=== PATIENT | male | born 1985 | race Caucasian/White ===

== ENCOUNTER 2021-07-18 10:00 | Outpatient (RCR) | payer OTHER, SELFPAY ==
[2021-07-06 13:06] VITALS: BMI 41.0
--- NOTE | 2021-07-06 15:11 | PC.NURSE ---
Case opened in treatment team.
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
--- NOTE | 2021-07-11 14:28 | PC.NURSE ---
I called and left a message for pt. I asked him to please call re: schedule and how the treatment is going.
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
--- NOTE | 2021-07-17 17:36 | HO.PHPPROGNO ---
Subjective Subjective Date of Service: 07/17/21 Reason For Visit: Personality D/o, Anxiety, Depression, Bipolar D/o Subjective Notes: High Warning Guardianship: No Medical Problems Affecting Mental Status: No Interim History: Hollis reports that he is doing good today. He reports that overall he feels that his mood has improved ?a little bit ?since he began PHP, and that he ?feels more stable ?. He denies any type of thought of harm to self or others, no safety concerns. Patient has been taking medications as prescribed, including the escitalopram 10 mg, and the lamotrigine which was increased to 100 mg daily on July 06. He denies any type of side effects. He states that he does feel stable regarding his last day tomorrow. He is requesting a refill for lamotrigine. Medication Compliance: Yes Side effects from medications: No Attending Groups: Yes Review of Systems Acute medical concerns: No Medical Review of Systems: unchanged Review of Systems Review of Systems Yes all other systems are reviewed and are negative Mental Status Exam Mental Status Exam Narrative: Well-developed, obese male, in no apparent distress. Alert and oriented x4, fully attentive during encounter. Patient Appearance: Well Grooomed and Appropriate Patient Orientation: Person, Place, Time and Situation Level of Consciousness: Appropriate and Alert Patient Behavior: Appropriate Mood Description: Appropriate, Depressed and Anxious Affect Description: Appropriate, Depressed and Anxious Patient Cognition Impaired: No Ability to Follow Directions: Excellent Speech Pattern: Clear and Appropriate Memory Description: Intact Hallucinations: None Delusions: Not Present Thought Process: Intact, Goal Oriented and Linear Thought Content: positive for Intact, positive for Goal Oriented and positive for Linear Depressive Symptoms: Increased Anxiety, Difficulty Sleeping, Feelings of Worthlessness and Hopelessness Judgement: Fair Diagnostics Vital Signs (24Hr): Body Mass Index 41.0 Assessment & Plan Assessment & Plan (1) Generalized anxiety disorder: Status: Acute Code(s): F41.1 - Generalized anxiety disorder Assessment and Plan: Patient continues with escitalopram 10 mg daily, reports he is tolerating it well. Reports that it is helping ?somewhat?. Patient stated he plans to keep taking this for now, and will discuss any further dose increases with his outpatient provider going forward. (2) Major depressive disorder, recurrent severe without psychotic features: Status: Acute Code(s): F33.2 - Major depressive disorder, recurrent severe without psychotic features Assessment and Plan: Patient reports the Lamictal, is helping manage his symptoms of bipolar depression. States that he feels more stable and that his mood has stabilized somewhat. Patient states that going forward he will discuss any further dose increase recommendations with his outpatient provider. No safety concerns at this time. He is requesting a refill for this medication. Assessment and Plan: 1. REfill sent for lamictal 100mg daily. 2. no other refills needed at this time. 3. Patient plans to follow-up with his outpatient provider going forward. 4. Will follow-up if needed while he is still enrolled in [facility]. Reason for contiued partial hosp. stay Substantial Risk for: stable for discharge Certification I certify that partial hospital treatment is medically necessary due to the symptoms and problems resulting from the patient's mental illness and the failure to treat the patient at the partial hospital level of care would likely result in the patient requiring inpatient psychiatric care which could not be prevented at a less intensive level of care. Greater than 50% of the session was spent on counseling and/or coordination of care Discharge Plan Discharge Attending provider: Lucian Viveros Medications: New escitalopram oxalate [Lexapro] 10 mg tablet 10 mg PO DAILY Qty: 30 RF: 1 lamotrigine 100 mg tablet 100 mg PO DAILY 30 Days Qty: 30 RF: 0 Discontinued lamotrigine 25 mg Tablet 50 mg PO BEDTIME RF: 0 No Action amlodipine 5 mg Tablet 5 mg PO BEDTIME RF: 0 lorazepam 1 mg Tablet 1 mg PO BEDTIME PRN (Reason: Sleep) RF: 0 ondansetron 4 mg Tablet,Disintegrating 4 - 8 mg PO Q8H PRN (Reason: Nausea) RF: 0 nortriptyline 50 mg Capsule 50 mg PO BEDTIME RF: 0 bupropion HCl [Wellbutrin SR] 200 mg Tablet Sustained-Release 12 Hr 200 mg PO BID RF: 0 aripiprazole 20 mg Tablet 20 mg PO BEDTIME RF: 0 gabapentin 300 mg Tablet 300 - 600 mg PO DAILY PRN (Reason: Pain) RF: 0 Telehealth Telehealth Location of provider rendering services: practice address Location of patient: address on file Patient Identification confirmed using: Name, : Yes Telehealth method: video Patient verbally consented to treatment: Yes Patient verbally consented to billing insurance company: Yes Patient informed of any privacy concerns related to visit: Yes Time spent with patient (mins): 15
--- NOTE | 2021-07-18 11:00 | PC.NURSE ---
Patient is scheduled for discharge today. Reviewed patient medications with patient. Patient reports that he has issues with sleeping. Stated he has been taking Wellbutrin SR 200 mg BID taking the second dose at HS. Reviewed with patient that taking second dose of Wellbutrin at HS could cause sleep issues and educated patient about taking the second dose 8 hours apart from the first dose taking first dose of Wellbutrin SR at 0800 and second dose at 1600. Also reviewed with Dr Norwood who advised to take medication as the above suggested times(0800,1600) as patient has been having issues with sleep. Denied any safety issues.
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
--- NOTE | 2021-07-18 15:40 | PC.NURSE ---
I called and left a message for pt's therapist at [facility], Lincoln Aiken ([phone]). I informed him of pt's discharge from [facility] today.
--- NOTE | 2021-07-21 15:39 | PC.NURSE ---
I called and left a message for pt's therapist at [facility], Lincoln Lanier
== END 2021-07-19 07:16 | disposition home or self-care (01) ==
LOC: HO.PHPA 10:00
PROVIDERS: Visit Provider Psychiatry & Neurology Psychiatry
DX: F33.2 Major depressive disorder, recurrent severe without psychotic features (principal); F41.1 Generalized anxiety disorder; Z79.899 Other long term (current) drug therapy
CPT/HCPCS: 90853

== ENCOUNTER 2022-02-01 11:15 | Outpatient (REF) | payer MEDICARE, MEDICAID, SELFPAY ==
[2022-02-01 13:04] LABS: Vitamin B12 472 pg/mL (200-900)
[2022-02-02 08:36] LABS: Lyme Abs Screen <0.90 index
== END 2022-02-01 11:16 | disposition home or self-care (01) ==
LOC: HO.LAB 11:15
PROVIDERS: Visit Provider Psychiatry & Neurology Neurology
DX: G31.84 Mild cognitive impairment of uncertain or unknown etiology (principal)
CPT/HCPCS: 36415; 82607; 86617; 86618

== ENCOUNTER 2023-05-01 10:58 | Emergency (ER) | payer MEDICARE, MEDICAID, SELFPAY ==
--- NOTE | ~2023-05-01 | XR_ITS ---
EXAMINATION: XR WRIST, LEFT CLINICAL INFORMATION: Left wrist pain COMPARISON: None available. TECHNIQUE: PA, lateral, and oblique views of the left wrist. FINDINGS: The bones and soft tissues are normal. No fracture. Alignment is anatomic with normal joint spaces. No erosions or abnormal soft tissue calcifications. XR/XR wrist LT min 3V IMPRESSION: Normal left wrist.
[2023-05-01 11:02] VITALS: BP 160/92; PULSE 86; RESP 18; TEMP 36.6; O2SAT 98; BMI 46.0
--- NOTE | 2023-05-01 11:04 | ED.EXTPRO ---
HPI - Extremity Problem General Chief complaint: Extremity Injury, Upper Stated complaint: L wrist inj Time Seen by Provider: 05/01/23 11:18 Source: patient Limitations: no limitations History of Present Illness HPI Narrative: 37-year-old male who presents with left wrist pain at the base of his 1st and 2nd digits. Patient states this past week is working on a vehicle putting in a start and felt a pop in his left wrist at the base of the thumb and 2nd digit. 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 Patient denies any blunt trauma to the left extremity. Symptoms mild to moderate no relief with Tylenol Motrin at home. Patient has longstanding history of stage IV cancer that is currently in remission. Patient is on gabapentin for chronic neuropathy. Also smokes medical marijuana. Pain is 7 no other complaints at this time. Related Data Home Medications Medication Instructions Recorded Confirmed amlodipine 5 mg tablet 5 mg PO BEDTIME 07/06/21 07/06/21 aripiprazole 20 mg tablet 20 mg PO BEDTIME 07/06/21 07/06/21 bupropion HCl 200 mg tablet,12 hr 200 mg PO BID 07/06/21 07/06/21 sustained-release (Wellbutrin SR) gabapentin 300 mg tablet 300 - 600 mg PO DAILY PRN Pain 07/06/21 07/06/21 lorazepam 1 mg tablet 1 mg PO BEDTIME PRN Sleep 07/06/21 07/06/21 nortriptyline 50 mg capsule 50 mg PO BEDTIME 07/06/21 07/06/21 ondansetron 4 mg disintegrating 4 - 8 mg PO Q8H PRN Nausea 07/06/21 07/06/21 tablet Previous Rx's Medication Instructions Recorded escitalopram oxalate 10 mg tablet 10 mg PO DAILY #30 tabs 07/11/21 (Lexapro) lamotrigine 100 mg tablet 100 mg PO DAILY 30 days #30 tabs 07/17/21 tramadol 50 mg tablet 50 mg PO BID PRN pain #14 tabs 05/01/23 Allergies Allergy/AdvReac Type Severity Reaction Status Date / Time Penicillins [PENICILLINS] Allergy Unknown HIVES Unverified 07/06/21 15:09 capsaicin Allergy Redness of Verified 07/06/21 12:07 Skin diphenhydramine AdvReac Agitated Verified 07/06/21 12:07 [From Benadryl] Review of Systems Review of Systems: General: No fever, no chills Ophthalmology: No vision changes, no discharge ENT: No sore throat, no ear pain Cardiovascular: No chest pain, no peripheral edema, no shortness of breath Respiratory: No dyspnea, no sputum production, no cough Muscle skeletal: Left wrist pain GI: no nausea vomiting, no diarrhea Skin: No rash PMFSH Past Medical History Medical History 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 HTN (hypertension) Neuropathy Surgical History History of tonsillectomy Social History Social History Household Members: Significant Other and Children Patient Tobacco Use Status: Current everyday Tobacco user Tobacco use type: Cigarette Years Smoked: Since age 18 Advance Directives: No Advance Directives Information Provided: No Physical Exam Vital Signs: Vital Signs: Last Vital Signs Temp 97.9 F 05/01/23 11:02 Pulse 86 05/01/23 11:02 Resp 18 05/01/23 11:02 BP 160/92 H 05/01/23 11:02 Pulse Ox 98 05/01/23 11:02 O2 Del Method Room Air 05/01/23 11:02 BMI result Body Mass Index 46.0 General appearance: Awake, alert, cooperative, in no acute distress Skin: Warm, dry, no rash Eyes: PERRL, EOMI, no icterus ENT: Oropharynx normal Neck: Soft supple full range of motion Extremities: Positive tenderness at the radial aspect of the left wrist no deformity pulses sensation are intact. Pain increases which some flexion of the left wrist. No erythema noted. Positive capillary refill. Neuro: Alert oriented x3, no focal deficit Psych: Normal affect Course Course Course Narrative: This is an RME: Additional HPI, ROS, PE not included below will be deferred to primary provider. 37-year-old male presenting to the emergency department for evaluation of left wrist pain since working on a car last week. He states that he felt a pop sensation working initially and has had pain since, worsening with movement. Stable to return to the waiting room until treatment room becomes available. Plan: Left wrist x-ray ordered. Medical Decision Making Medical Decision Making MDM Narrative: Left wrist tendinitis Tenosynovitis Left wrist sprain 37-year-old gentleman who injured his left wrist while repairing his car. Patient denies blunt trauma left wrist x-ray is pending. Patient used cock-up splinting of distal with some relief. But no relief with [id number] medications such as Tylenol or Motrin. Exam is consistent with left wrist tendinitis x-rays pending Radiology Impression Discussion of test interpretation with radiology: I have reviewed the radiologist's reading. Radiologist Impression: [address] [address]QDis ReportSigned Patient: Hollis ParkMR#: [id number]: 1985Acct:[id number]/Sex: 37 / MADM Date: 05/01/23Loc: HO.EDAttending Dr: Ordering Physician: Klarissa Weiner Date of Service: 05/01/23 Procedure(s): XR wrist LT min 3V Accession Number(s): [id number] cc: Klarissa Weiner~ EXAMINATION: XR WRIST, LEFT CLINICAL INFORMATION: Left wrist pain COMPARISON: None available. TECHNIQUE: PA, lateral, and oblique views of the left wrist. FINDINGS: The bones and soft tissues are normal. No fracture. Alignment is anatomic with normal joint spaces. No erosions or abnormal soft tissue calcifications. XR/XR wrist LT min 3V IMPRESSION: Normal left wrist. Dictated By:Priyank Harp MDSigned By:<Electronically signed by Priyank Harp MD in [place]>05/01/23 1254 DD/ 1135TD/TT: Sales Engineer Account Manager: Discharge Plan Discharge Clinical Impression: Left wrist sprain Patient Disposition: Home, Self-Care Instructions: Wrist Injury (ED), Wrist Sprain (ED) Additional Instructions: Splint rest ice elevation Medication as needed for pain X-rays negative Prescriptions: New tramadol 50 mg tablet 50 mg PO BID PRN (Reason: pain) Qty: 14 0RF No Action amlodipine 5 mg Tablet 5 mg PO BEDTIME Patient Comments: Patient takes at HS lorazepam 1 mg Tablet 1 mg PO BEDTIME PRN (Reason: Sleep) ondansetron 4 mg Tablet,Disintegrating 4 - 8 mg PO Q8H PRN (Reason: Nausea) nortriptyline 50 mg Capsule 50 mg PO BEDTIME bupropion HCl [Wellbutrin SR] 200 mg Tablet Sustained-Release 12 Hr 200 mg PO BID aripiprazole 20 mg Tablet 20 mg PO BEDTIME gabapentin 300 mg Tablet 300 - 600 mg PO DAILY PRN (Reason: Pain) escitalopram oxalate [Lexapro] 10 mg tablet 10 mg PO DAILY Qty: 30 1RF Rx Instructions: Take 1/2 tab x 2 days, then increase to 1 tab QAM lamotrigine 100 mg tablet 100 mg PO DAILY 30 Days Qty: 30 0RF
[2023-05-01 13:16] VITALS: BP 157/76; PULSE 76; RESP 18; O2SAT 96
== END 2023-05-01 13:19 | disposition home or self-care (01) ==
PROVIDERS: Emergency Provider Emergency Medicine; PCP Pediatrics
DX: S63.502A Unspecified sprain of left wrist, initial encounter (principal); X50.1XXA Overexertion from prolonged static or awkward postures, initial encounter; Y93.89 Activity, other specified; Y92.9 Unspecified place or not applicable; Y99.9 Unspecified external cause status
CPT/HCPCS: 73110; 99283; 99284